=== PATIENT | female | born 1955 | race Caucasian/White ===

== ENCOUNTER → 2024-11-02 08:27 | Outpatient (REF) | payer OTHER, SELFPAY | LOC: PAVMRI 08:27 | PROVIDERS: ATTENDING PHYSICIAN Family Medicine | DX: D32.9 Benign neoplasm of meninges, unspecified (principal) | CPT/HCPCS: 70553; A9575 ==

== ENCOUNTER 2025-02-15 00:34 | Emergency (ER) | payer OTHER, SELFPAY ==
[2025-02-15 00:37] VITALS: BP 156/81
[2025-02-15 01:02] LABS: Hematocrit 34.3 % (37.0-47.0); Hemoglobin 11.7 g/dL (12.0-16.0); Mean Corp Hgb Conc. 34.1 g/dL (33.0-37.0); Mean Corpuscular Volume 84.5 fL (81.0-99.0); Nucleated Red Blood Cells % 0 %; Platelet Count 282 10^3/uL (130-400); Red Cell Dist. Width 12.9 % (11.5-14.5)
[2025-02-15 01:22] LABS: ALT (SGPT) 37 U/L (0-35); AST (SGOT) 33 U/L (14-36); Albumin 4.0 g/dl (3.5-5.0); Alkaline Phosphatase 73 U/L (38-126); Blood Urea Nitrogen 18 mg/dl (7-17); Calcium 8.9 mg/dl (8.4-10.2); Carbon Dioxide 24 mmol/L (22-30); Chloride 106 mmol/L (98-107); Glucose 121 mg/dl (70-99); Potassium 4.2 mmol/L (3.5-5.1); Sodium 135 mmol/L (135-145); Total Protein 6.8 g/dl (6.3-8.2); eGFR > 60.00
[2025-02-15 02:55] VITALS: BP 129/84
[2025-02-15 03:00] VITALS: BP 129/58
[2025-02-15 03:05] VITALS: BP 132/74; BMI 27.5
[2025-02-15 04:00] VITALS: BP 110/52
[2025-02-15] MEDS: ANTIVERT 25 MG PO (04:05)
[2025-02-15 04:35] VITALS: BP 105/55
--- NOTE | 2025-02-15 04:47 | ED.GENMED ---
History of Present Illness
General
Chief Complaint: Dizziness
Source: patient and spouse
Exam Limitations: none
Time Seen by Provider: 02/15/25 03:10
Nursing documentation reviewed up to this point in time: agreed with
History of Present Illness
History of Present Illness:
This is a 69-year-old woman with history of hypertension, hyperlipidemia, SVT. She recently suffered a left lower lobe pneumonia with cough, hemoptysis, fever with Tmax of 103 �F. Evaluated by urgent care/patient first and had chest x-ray showing
left lower lobe pneumonia. Placed on a 1 week course of doxycycline which she finished February 12. She admits that fever resolved within 2 to 3 days, cough has near completely resolved. She continues with very mild intermittent fatigue but
no shortness of breath.
Tonight while attempting to go to bed she developed abrupt onset of dizziness while lying down. Dizziness improved, resolved with sitting up. Recurrent episodes of dizziness with attempting to lie supine. She admits to sporadic similar brief
episodes of dizziness including 2-1/2 weeks ago when she attempted to lie down at the dentist office. Dizziness accompanied with mild nausea without vomiting. She denies headache, no palpitations, no chest pain, no no fever no chills.
She has not taken anything for her symptoms. Currently feeling improved.
Past History
Past History
ED Past Medical History: Arrthythmia (SVT ), HTN, Hypercholesterolemia and Other (IBS, Ovarian cyst, Rosacea, vulvar lichen sclerosis)
ED Past Surgical History: Tonsilectomy (and adenoids, ) and Other (More removed from back, Oral surgery)
Social History
Tobacco: Former smoker
Alcohol: Occasional
Personal:
Living: with family
Employment: Retired
Family History
Family History: Negative Early CAD, CAD or Sudden
Phy Exam
Physical Exam
Physical Exam:
GENERAL: 69-year-old woman appears her stated age, bright and alert, pleasant, appears in no acute distress. is accompanying.
EYE: pupils equal and reactive. Extraocular muscles intact. Anicteric. Negative test of skew. Head impulse negative.
NECK: Supple, nontender, no meningismus, no significant adenopathy.
ENT: posterior pharynx is clear, oral mucosa is moist. TM clear b/l, nares patent.
CARDIAC: Regular rate and rhythm. no murmur.
LUNGS: Clear breath sounds bilaterally, no acute respiratory distress, no wheezes/rales/rhonchi
ABDOMEN: Soft, nondistended, without focal tenderness, normoactive BS.
NEUROLOGICAL: Alert and oriented x3, no focal neuro deficits. Gait is steady. Kayla-Hallpike negative bilaterally.
SKIN: Warm and dry, normal color, skin intact. No rash.
MUSCULOSKELETAL: No C/C/E. peripheral pulses are full and equal b/l. No palpable tenderness.
PSYCH: Normal and appropriate interaction.
Course
Orders/Labs/Results
Orders:
Orders
02/15/25 00:46
Complete Blood Count/With Diff Urgent
Comprehensive Metabolic Panel Urgent
02/15/25 03:26
Meclizine [Antivert] 25 mg PO NOW STA
CR Chest - 2 Views Urgent
Comment:
Reason For Exam: cough, recent LLL pneumonia
Abnormal Lab Results
02/15/25
00:46
RBC 4.06 L 10^6/uL
(4.20-5.40)
Hgb 11.7 L g/dL
(12.0-16.0)
Hct 34.3 L %
(37.0-47.0)
Abs Immat Gran (auto) 0.1 H 10^3/uL
(0-0.05)
Immature Gran % 1.1 H %
(0-0.5)
BUN 18 H mg/dl
(7-17)
Glucose 121 H mg/dl
(70-99)
ALT 37 H U/L
(0-35)
02/15/25 00:46
02/15/25 00:46
Vital Signs
Initial and Last Documented VS:
Initial Vital Signs
Temp Pulse Resp BP Pulse Ox
98.4 F 77 18 156/81 98
02/15/25 00:37 02/15/25 00:37 02/15/25 00:37 02/15/25 00:37 02/15/25 00:37
Last Documented Vital Signs
Temp Pulse Resp BP Pulse Ox
98.4 F 88 18 132/74 95
02/15/25 00:37 02/15/25 03:05 02/15/25 03:05 02/15/25 03:05 02/15/25 04:48
MDM/Problems Addressed
Differential Diagnosis Includes:
History exam most consistent with benign paroxysmal positional vertigo. Currently asymptomatic.
Other consideration is central vertigo, adverse reaction to recently prescribed antibiotic is another consideration however less likely as patient completed course of antibiotic 3 days ago.
Prior history of SVT thus this is a consideration however less likely, denies palpitations.
Recent left lower lobe pneumonia. Lungs are clear to auscultation. Will check chest x-ray to assess for resolution.
Labs are unremarkable.
Will give a dose of meclizine and continue to observe.
Chronic conditions affecting care: HTN, Arrhythmia and Other (Recent pneumonia)
*Radiology
Radiology exam reviewed: preliminary read by ED provider (Chest x-ray shows scant linear/platelike atelectasis left lower lobe versus mild linear scarring. No infiltrate.)
*Pulse Oximetry
SaO2: 95
Oxygen Mode of Delivery: Room air
Patient hypoxic: no
*[employer] Interpretation
Rate: normal
Interpretation: normal
Rhythm: sinus
*Critical Care Note
Total Time (30-74mins, 75-104mins- exclusive of procedures): Not Applicable
Update Note
Update Note:
04:50
Patient remains comfortable, asymptomatic.
Chest x-ray is unremarkable.
Will discharge to home with prescription for meclizine for as needed dizziness.
Patient request referral to new PCP and has been provided with our pulse line referral number as well as number for our family practice residency clinic.
ED Attending Note
-
Portions of this chart may have been created with voice recognition software.� Occasional wrong word or��sound alike� substitutions may have occurred due to the inherent limitations of voice recognition software.
Discharge Plan
Departure
Patient Disposition: Home (Routine Discharge)
Date of Disposition: 02/15/25
Time of Disposition: 04:49
Patient with high blood pressure during this ER visit?: No
Condition: Good
Discharge Problem:
acute positional vertigo
Instructions: Vertigo (a type of dizziness)
Prescriptions:
New
meclizine 25 mg tablet
25 mg PO QID PRN (Reason: dizziness, nausea) Qty: 20 0RF
No Action
metoprolol tartrate 25 MG tablet
25 mg PO DAILY Qty: 30 0RF
[id number]-etgouca-eucalyptl
1 applic topical DAILY PRN (Reason: sore feet)
Rx Instructions:
to feet.
Flonase
2 spray inhalation DAILY
clobetasol
1 applic topical Q48H PRN (Reason: congestion)
Referrals:
[facility] [Provider Group] - Call in 1-3 days for appt
UNKNOWN - PT DOES,NOT KNOW [Family Provider]
Interventions
Interventions:
*Risk Screen - Suicide Last Done: 02/15/25 00:37
*General Assessment Last Done: 02/15/25 00:37
*Neglect/Abuse Screening Last Done: 02/15/25 00:37
ED- Neurological Assessment Last Done: 02/15/25 03:07
ED Swallowing Screen Last Done: 02/15/25 03:07
Discharge Date and Time
Print Language: FAROESE
== END 2025-02-15 05:11 | disposition home or self-care (01) ==
LOC: EMR 00:34
PROVIDERS: Emergency Medicine; EMERGENCY PHYSICIAN Emergency Medicine
DX: R42 Dizziness and giddiness (principal); I11.9 Hypertensive heart disease without heart failure; E78.00 Pure hypercholesterolemia, unspecified; Z87.891 Personal history of nicotine dependence
CPT/HCPCS: 99283; 71046; 80053; 85025

== ENCOUNTER 2025-03-22 23:30 | Emergency (ER) | payer OTHER, SELFPAY ==
[2025-03-22 23:39] VITALS: BP 136/77
[2025-03-23 01:07] VITALS: BP 145/67
[2025-03-23 01:08] VITALS: BMI 28.4
[2025-03-23 01:11] LABS: Hematocrit 37.3 % (37.0-47.0); Hemoglobin 12.5 g/dL (12.0-16.0); Mean Corp Hgb Conc. 33.5 g/dL (33.0-37.0); Mean Corpuscular Volume 85.4 fL (81.0-99.0); Nucleated Red Blood Cells % 0 %; Platelet Count 202 10^3/uL (130-400); Red Cell Dist. Width 13.6 % (11.5-14.5)
[2025-03-23 01:27] LABS: ALT (SGPT) 18 U/L (0-35); AST (SGOT) 21 U/L (14-36); Albumin 4.3 g/dl (3.5-5.0); Alkaline Phosphatase 59 U/L (38-126); Blood Urea Nitrogen 15 mg/dl (7-17); Calcium 9.8 mg/dl (8.4-10.2); Carbon Dioxide 25 mmol/L (22-30); Chloride 106 mmol/L (98-107); Estimated Creatinine Clearance 89 ml/min; Glucose 108 mg/dl (70-99); Lipase 63 U/L (23-300); Potassium 4.6 mmol/L (3.5-5.1); Sodium 137 mmol/L (135-145); Total Protein 7.1 g/dl (6.3-8.2); eGFR > 60.00
[2025-03-23 01:35] LABS: Urine Character Clear (Clear)
[2025-03-23 01:36] LABS: Troponin I < 0.012 ng/ml
[2025-03-23] MEDS: MAALOX 50 PO (01:52)
[2025-03-23 02:00] VITALS: BP 156/78
[2025-03-23 02:26] LABS: Urine Squamous Cell >30 /LPF (Few)
[2025-03-23 02:27] LABS: Urine Red Blood Cell None Seen /HPF (0-2)
[2025-03-23 03:00] VITALS: BP 129/63
--- NOTE | 2025-03-23 03:00 | ED.GENMED ---
Addendum entered and electronically signed by JANIS Hernandez 03/27/25 09:13:
Urine shows Staphylococcus Schleiferi: Attempted to call patient home no answer results faxed to patient's family doctor Dr. Chadnrakant Gaston
Original Note:
History of Present Illness
General
Chief Complaint: Abdominal Symptoms
Source: patient
Exam Limitations: none
Time Seen by Provider: 03/23/25 01:30
Nursing documentation reviewed up to this point in time: agreed with
History of Present Illness
History of Present Illness:
Pleasant 69-year-old female who presents with abdominal pain. She has been on amoxicillin for abscesses she is under the care of her doctor and periodontal surgeon. She states that she has continued jaw pain. Patient was given amoxicillin and has
been taking it for the last few days. She denies fever, chills, nausea or vomiting. She states that the jaw pain is not new.
Past History
Past History
ED Past Medical History: Arrthythmia (SVT ), HTN, Hypercholesterolemia and Other (IBS, Ovarian cyst, Rosacea, vulvar lichen sclerosis)
ED Past Surgical History: Tonsilectomy (and adenoids, ) and Other (More removed from back, Oral surgery)
Social History
Tobacco: Former smoker
Alcohol: Occasional
Personal:
Living: with family
Employment: Retired
Family History
Family History: Negative Early CAD, CAD or Sudden
Phy Exam
General Physical Exam
General Presentation: well appearing and no apparent distress
General Skin: warm and dry
General Habitus: normal
General Mental: alert
General Hydration: appears well hydrated
ENT Exam
ENT Exam: EOMI, pharynx normal, neck supple and normocephalic
Eye Exam
Eye Exam: PERRL, cornea clear and conjunctiva normal
Cardiovascular Exam
Cardiovascular Exam: regular rate/rhythm, no edema, no murmur and normal peripheral pulses
Pulmonary Exam
Pulmonary Exam: lungs clear, no respiratory distress, no rales, no crackles, no rhonchi, no stridor, no wheezing and no cough
Gastrointestinal Exam
Gastrointestinal Exam: normal bowel sounds, non tender, soft, no organomegaly, no pulsatile mass and non distended
Neurological Exam
Neurological Exam: alert, oriented x3, no motor deficits and speech normal
Musculoskeletal Exam
Musculoskeletal Exam: full ROM and no edema
Skin Exam
Skin Exam: normal color, warm/dry, no rash and no petechia
Psychiatric Exam
Psychiatric Exam: normal mood/affect
Course
Orders/Labs/Results
Orders:
Orders
03/22/25 23:42
Electrocardiogram (*1) Urgent
Reason for Study: Abdominal Pain
EKG- Treatment ONCE
Complete Blood Count/With Diff Urgent
Comprehensive Metabolic Panel Urgent
Lipase Urgent
Troponin I Urgent
03/23/25 01:26
Urinalysis Reflex To Culture Urgent
Date Specimen was Collected: 03/23/25
Time Specimen was Collected: 01:24
Urine Microscopic Reflex Cult Urgent
Urine Culture Urgent
JAZMIN Source: U
Specimen Description:
Date Specimen was Collected: 03/23/25
Time Specimen was Collected: 01:24
03/23/25 01:45
Electrocardiogram (*1) Urgent
Reason for Study: Abdominal Pain
EKG- Treatment ONCE
Mag Hydrox/Al Hydrox/Simeth [Maalox] 30 ml Phenobarb/Hyoscy/Atropine/Scop [] 10 ml Viscous Lidocaine 2% [Xylocaine Viscous Cup] 10 ml PO NOW
03/23/25 01:50
Mag Hydrox/Al Hydrox/Simeth [Maalox] 30 ml .ROUTE .STK-MED ONE
Phenobarb/Hyoscy/Atropine/Scop [] 10 ml .ROUTE .STK-MED ONE
03/23/25 01:51
Viscous Lidocaine 2% [Xylocaine Viscous Cup] 15 ml .ROUTE .STK-MED ONE
03/23/25 02:28
Troponin I Urgent
Abnormal Lab Results
03/23/25 03/23/25
01:05 01:26
Glucose 108 H mg/dl
(70-99)
Leukocyte Esterase Rfl 2+ A
(Negative)
Urine Bacteria (Reflex) Few A
(Negative)
03/23/25 01:05
03/23/25 01:05
Vital Signs
Initial and Last Documented VS:
Initial Vital Signs
Temp Pulse Resp BP Pulse Ox
98.3 F 65 18 136/77 100
03/22/25 23:39 03/22/25 23:39 03/22/25 23:39 03/22/25 23:39 03/22/25 23:39
Last Documented Vital Signs
Temp Pulse Resp BP Pulse Ox
98.3 F 65 18 129/63 99
03/22/25 23:39 03/22/25 23:39 03/22/25 23:39 03/23/25 03:00 03/23/25 03:01
*Pulse Oximetry
SaO2: 99
Oxygen Mode of Delivery: Room air
Patient hypoxic: no
*Critical Care Note
Total Time (30-74mins, 75-104mins- exclusive of procedures): Not Applicable
Update Note
Update Note:
Lab work is unremarkable. Patient knows that she has to get the tooth removed. I feel that the epigastric pain that she experienced is likely due to taking the amoxicillin since it started shortly after. Gave patient green grabber and her
symptoms resolved.
ED Attending Note
-
Portions of this chart may have been created with voice recognition software.� Occasional wrong word or��sound alike� substitutions may have occurred due to the inherent limitations of voice recognition software.
Discharge Plan
Departure
Patient Disposition: Home (Routine Discharge)
Date of Disposition: 03/23/25
Time of Disposition: 03:00
Patient with high blood pressure during this ER visit?: Yes
Condition: Good
Discharge Problem:
Acute epigastric pain
Instructions: Abdominal Pain, BLOOD PRESSURE
Prescriptions:
No Action
metoprolol tartrate 25 MG tablet
25 mg PO DAILY Qty: 30 0RF
icwn-btuorct-haonfak-eucalyptl
1 applic topical DAILY PRN (Reason: sore feet)
Rx Instructions:
to feet.
Flonase
2 spray inhalation DAILY
clobetasol
1 applic topical Q48H PRN (Reason: congestion)
meclizine 25 mg tablet
25 mg PO QID PRN (Reason: dizziness, nausea) Qty: 20 0RF
Referrals:
Chandrakant Gaston DO [Family Provider, Internal Medicine]
Activity Restrictions/Additional Instructions:
Thank You for choosing [facility].
It was a pleasure meeting you and taking part in your care. We hope for your continued healing and wellness.
Please read discharge instructions in their entirety. However, they are for general education and may not describe your exact diagnosis at discharge. Information on your ER visit and medical conditions were discussed with you along with appropriate
follow up information...
If indicated, please take your medications as instructed and indicated on discharge paperwork.
Please schedule a follow up appointment as directed. Call to schedule an appointment
Please return to the emergency department with ANY change in, persisting, or worsening of symptoms. If any of your symptoms do not improve, or persist, or become more severe within 6-12 hours, please return to the emergency department for further
care.
Please return to the emergency department if you develop a headache, neck pain/stiffness, fever greater than 100.4F, chest pain, shortness of breath, persistent nausea, vomiting, slurred speech, difficulty walking, numbness/tingling, weakness, signs
of infection or any other symptoms that are worrisome to you.
If you have any questions or concerns please do not hesitate to call the Hospital at or E-mail me directly at [email or web address]
Interventions
Interventions:
*Risk Screen - Suicide Last Done: 03/22/25 23:39
*General Assessment Last Done: 03/22/25 23:39
*Neglect/Abuse Screening Last Done: 03/22/25 23:39
*ED- Fall Risk Assessment Last Done: 03/23/25 01:09
*ED COVID-19 Vaccine History Last Done: 03/23/25 01:09
*Nursing Disposition Last Done: 03/23/25 03:11
RA-Hfgvvo-Xswazycgcm Assessment Last Done: 03/23/25 01:09
Discharge Date and Time
Discharge Date/Time: 03/23/25 03:13
Print Language: URDU
[2025-03-23 03:03] LABS: Troponin I < 0.012 ng/ml
== END 2025-03-23 03:13 | disposition home or self-care (01) ==
LOC: EMR 23:30
PROVIDERS: EMERGENCY PHYSICIAN Student in an Organized Health Care Education/Training Program; FAMILY PHYSICIAN Internal Medicine
DX: R10.13 Epigastric pain (principal); R68.84 Jaw pain; E78.00 Pure hypercholesterolemia, unspecified; I10 Essential (primary) hypertension; Z87.891 Personal history of nicotine dependence
CPT/HCPCS: 99284; 80053; 81003; 81015; 83690; 84484; 85025; 87086; 87147; 87186; 93005

== ENCOUNTER → 2025-04-03 07:11 | Outpatient (REF) | payer OTHER, SELFPAY | LOC: MRI 07:11 | PROVIDERS: ATTENDING PHYSICIAN Neurological Surgery; FAMILY PHYSICIAN Physician Assistant Medical | DX: G93.5 Compression of brain (principal) | CPT/HCPCS: 72146 ==

== ENCOUNTER → 2025-05-31 08:05 | Outpatient (REF) | payer OTHER, SELFPAY | LOC: RAD 08:05 | PROVIDERS: ATTENDING PHYSICIAN Family Medicine; FAMILY PHYSICIAN Physician Assistant Medical | DX: R10.13 Epigastric pain (principal) | CPT/HCPCS: 76700 ==

== ENCOUNTER → 2025-07-13 08:05 | Outpatient (REF) | payer OTHER, SELFPAY | LOC: PAVMRI 08:05 | PROVIDERS: ATTENDING PHYSICIAN Neurological Surgery; FAMILY PHYSICIAN Physician Assistant Medical | DX: D32.9 Benign neoplasm of meninges, unspecified (principal) | CPT/HCPCS: 70553; A9575 ==